=== PATIENT | male | born 1990 | race Hispanic/Latino ===

== ENCOUNTER 2016-09-15 22:55 | Emergency (ER) | payer BC ==
[2016-09-15 23:01] VITALS: BP 129/74; PULSE 66; RESP 16; TEMP 98.2; O2SAT 100
--- NOTE | 2016-09-15 23:54 | ED PDOC ---
Lower Extremity Pain/Injury Time Seen by Provider: 09/15/16 23:02 Chief Complaint (Nursing): Lower Extremity Problem/Injury Chief Complaint (Provider): Right fisher pain Past Medical History Vital Signs: Last Vital Signs Temp 98.2 F 09/15/16 22:59 Pulse 66 09/15/16 22:59 Resp 16 09/15/16 22:59 BP 129/74 09/15/16 22:59 Pulse Ox 100 09/15/16 22:59 - Allergies Allergies/Adverse Reactions: Allergies Allergy/AdvReac Type Severity Reaction Status Date / Time amoxicillin Allergy RASH Verified 09/15/16 23:01 - ECG O2 Sat by Pulse Oximetry: 100 Medical Decision Making Medical Decision Making: Endorsed pending [facility] reading of x-ray. Disposition - Clinical Impression Clinical Impression: Injury of tibia - Patient ED Disposition Is Patient to be Admitted: No Counseled Patient/Family Regarding: Diagnosis, Need For Followup - Disposition Referrals: Pierre Clancy III, MD [Staff Provider] - Disposition: Transfer of Care Disposition Time: 23:54 Condition: GOOD Additional Instructions: Ice, elevation, motrin. Instructions: Contusion in Adults (ED) Forms: [facility] ED School/Work Excuse
--- NOTE | 2016-09-16 09:23 | RAD ---
PROCEDURE: Radiographs of the right tibia and fibula. HISTORY: injury COMPARISON: None available. TECHNIQUE: Frontal and lateral views obtained. FINDINGS: BONES: No fracture or destructive lesion. JOINT SPACES: Unremarkable. OTHER FINDINGS: None. IMPRESSION: No evidence of acute displaced fracture nor dislocation. If symptoms persist or occult fracture suspected clinically recommend repeat radiographs in 5-10 days as most fractures should become radiographically evident in this timeframe.
== END 2016-09-16 00:04 | disposition home or self-care (01) ==
LOC: H.ER 22:55
DX: S84.01XA Injury of tibial nerve at lower leg level, right leg, initial encounter (principal); W19.XXXA Unspecified fall, initial encounter; Y92.89 Other specified places as the place of occurrence of the external cause